=== PATIENT | male | born 1995 | race Caucasian/White ===

== ENCOUNTER 2019-11-21 01:46 | Emergency (ER) | payer OTHER ==
--- NOTE | 2019-11-21 02:36 | PDOC ---
History of Present Illness - History of Present Illness Initial Comments: 11/21/19 03:14 24 year old man with no pmhx who presents with abdominal pain at 11:30 am followed by nbnb vomiting x7 and some loose stools. He also reports some chills. He denies any other sick contacts, eating any unusal foods. He dnies any history of abdominal surgeries in the past. He complains of some nausea and some abdominal pain. He has no other complaints. ROS GENERAL/CONSTITUTIONAL: No fever, + chills. No weakness. HEAD, EYES, EARS, NOSE AND THROAT: No sore throat. CARDIOVASCULAR: No chest pain or shortness of breath RESPIRATORY: No cough, wheezing, or hemoptysis. GASTROINTESTINAL: + nausea, vomiting, diarrhea, No constipation. GENITOURINARY: No dysuria, frequency, or change in urination. MUSCULOSKELETAL: No joint or muscle swelling or pain. No neck or back pain. SKIN: No rash NEUROLOGIC: No headache, vertigo, loss of consciousness, or change in strength/ sensation. PE GENERAL: Awake, alert, and fully oriented, in no acute distress HEAD: No signs of trauma, normocephalic, atraumatic EYES: EOMI, sclera anicteric, conjunctiva clear ENT: oropharynx clear without exudates. Moist mucosa NECK: Normal ROM, supple LUNGS: No distress, speaks full sentences, clear to auscultation bilaterally HEART: Regular rate and rhythm, normal S1 and S2, no murmurs, rubs or gallops, peripheral pulses normal and equal bilaterally. ABDOMEN: Soft, + mild tenderness to epigastrum. No guarding, no rebound. No masses EXTREMITIES : Normal inspection, Normal range of motion, no edema. No clubbing or cyanosis. NEUROLOGICAL: Cranial nerves II through XII grossly intact. Normal speech, normal gait, no focal sensorimotor deficits SKIN: Warm, Dry, normal turgor, no rashes or lesions noted MDM DDX including but not limited to: viral gastroenteritis r/o appendicitis vs pancreatitis vs gallstone ED Course: labs, zofran, pepcid, maalox Labs wnl patient feels improved on reassessment will send with zofran and recommend pcp f/u d/c with strict return precautions Julianne Rivera, PGY2 Emergency Medicine <Julianne Rivera - Last Filed: 11/21/19 20:57> <Chely Hernandez - Last Filed: 11/21/19 21:09> - General Stated Complaint: ABD PAIN Time Seen by Provider: 11/21/19 02:35 Past History <Julianne Rivera - Last Filed: 11/21/19 20:57> <Chely Hernandez - Last Filed: 11/21/19 21:09> - Past Medical History Allergies/Adverse Reactions: Allergies Allergy/AdvReac Type Severity Reaction Status Date / Time No Known Allergies Allergy Verified 11/21/19 03:38 Home Medications: Ambulatory Orders Ondansetron [Zofran -] 4 mg PO BID #14 tablet 11/21/19 *Physical Exam - Vital Signs Last Vital Signs Temp Pulse Resp BP Pulse Ox 98.1 F 80 20 117/74 99 11/21/19 02:35 11/21/19 02:35 11/21/19 02:35 11/21/19 02:35 11/21/19 02:35 <Chely Hernandez - Last Filed: 11/21/19 21:09> Heart Score/ECG Review - ECG Intrepretation Rhythm: Regular Rhythm - Chamberino Chamberino: Normal - P and MI Delta Wave(s) Present: No WPW: No - QRS Poor R Wave Progression: No Q Wave Present: No - ST and T Early Repolarization: No Non Specific ST-T Wave changes: No - ECG Impressions Normal ECG: Yes Non-specific ST Elevation: No Ischemic Changes: No Torsades deann Pointes: No WPW: No <Chely Hernandez - Last Filed: 11/21/19 21:09> ED Treatment Course - LABORATORY CBC & Chemistry Diagram: 11/21/19 03:12 11/21/19 03:12 <Julianne Rivera - Last Filed: 11/21/19 20:57> - LABORATORY CBC & Chemistry Diagram: 11/21/19 03:12 11/21/19 03:12 - ADDITIONAL ORDERS Additional order review: 11/21/19 03:12 RBC 5.83 H MCV 81.9 MCHC 33.2 RDW 13.0 MPV 8.4 Neutrophils % 82.5 Lymphocytes % 7.8 L Monocytes % 7.8 Eosinophils % 1.5 Basophils % 0.4 - Medications Given in the ED: ED Medications Discontinued Medications Generic Name Dose Route Start Last Admin Trade Name Miley PRN Reason Stop Dose Admin Al Hydroxide/Mg Hydroxide 30 ml 11/21/19 03:13 11/21/19 03:39 Mylanta Oral Suspension - PO 11/21/19 03:14 30 ml ONCE ONE Administration Sodium Chloride 1,000 mls @ 42 mls/hr 11/21/19 03:15 11/21/19 03:39 Normal Saline - IV 42 mls/hr ASDIR MARIZA Administration Famotidine/Sodium Chloride 20 mg in 50 mls @ 100 mls/hr 11/21/19 03:44 03:45 Pepcid 20 Mg Premixed Ivpb - IVPB 11/21/19 04:13 100 mls/hr ONCE ONE Administration Ondansetron HCl 4 mg 11/21/19 03:12 11/21/19 03:39 Zofran Injection IVPUSH 11/21/19 03:13 4 mg ONCE ONE Administration <Chely Hernandez - Last Filed: 11/21/19 21:09> Discharge - Discharge Information Problems reviewed: Yes - Admission No <Julianne Rivera - Last Filed: 11/21/19 20:57> <Chely Hernandez - Last Filed: 11/21/19 21:09> - Discharge Information Clinical Impression/Diagnosis: Gastroenteritis Condition: Stable Disposition: HOME - Additional Discharge Information Prescriptions: Ondansetron [Zofran -] 4 mg PO BID #14 tablet - Patient Discharge Instructions Patient Printed Discharge Instructions: DI for Vomiting -- Adult Additional Instructions: You were seen in the ED for complaints of vomiting In the ED you were evaluated with labwork that was negative Your results were unremarkable and you improved with medications There does not appear to be an acute need for immediate hospitalization. You are advised to follow up with your Primary Care Physician within 1 week. You were given a prescription for Zofran which should be taken as prescribed Return to the ED immediately if you experience worsening vomiting, abdominal pain, diarrhea, blood in the vomit or stool
--- NOTE | 2019-11-21 02:45 | PDOC ---
Attending Attestation - Resident Resident Name: Julianne Rivera - ED Attending Attestation I have performed the following: I have examined & evaluated the patient, The case was reviewed & discussed with the resident, I agree w/resident's findings & plan - HPI HPI: 11/21/19 06:51 Pt comes with viral illness. He is dry and dehydrated and feeling unwell. - Physicial Exam PE: 11/21/19 06:51 Agree with resident exam 11/21/19 06:52 HEENT normal; +exudate at the pharynx; however no erythema Poor dentition: pt is a smoker Heart S1S2 RRR Lungs: CTA B Abd soft NT ND no flank pain Ext No C/C/E - Medical Decision Making 11/21/19 06:51 Group A strep negative Labs normal Pt feels better after hydration
[2019-11-21] MEDS ORDERED: ONDANSETRON 4 MG/2 ML VIAL IVPUSH ONE (03:12)
[2019-11-21] MEDS ORDERED: FAMOTIDINE 20 MG TABLET PO ONE (03:13)
[2019-11-21] MEDS ORDERED: MAG HYDROX/AL HYDROX/SIMETH 30 ML UNIT-DOSE CUP PO ONE (03:13)
[2019-11-21] MEDS ORDERED: SODIUM CHLORIDE 1,000 ML IV SCH (03:15)
[2019-11-21 03:26] VITALS: BP 117/74; PULSE 80; TEMP 98.1; BMI 25.0
[2019-11-21] MEDS ORDERED: ONDANSETRON 4 MG/2 ML VIAL ONE (03:28)
[2019-11-21] MEDS ORDERED: MAG HYDROX/AL HYDROX/SIMETH 30 ML UNIT-DOSE CUP ONE (03:28)
[2019-11-21] MEDS ORDERED: FAMOTIDINE 20 MG/50 ML IVPB 20 MG/50 ML MG IVPB ONE ×2 (03:29→03:44)
[2019-11-21 03:34] LABS: BASO % 0.4 % (0-2.0); EOS % 1.5 % (0-4.5); HEMATOCRIT 47.7 % (35.4-49); HEMOGLOBIN 15.8 GM/dL (11.7-16.9); LYMPH % 7.8 % (8-40); MCH 27.2 pg (25.7-33.7); MCHC 33.2 g/dl (32.0-35.9); MEAN CELL VOLUME 81.9 fl (80-96); MEAN PLT VOLUME 8.4 fl (7.5-11.1); MONO % 7.8 % (3.8-10.2); NEUT % 82.5 % (42.8-82.8); PLATELET COUNT 238 K/MM3 (134-434); RBC 5.83 M/mm3 (4.00-5.60); WHITE BLOOD COUNT 9.3 K/mm3 (4.0-10.0)
[2019-11-21 04:04] LABS: ALBUMIN 4.2 g/dl (3.4-5.0); BILIRUBIN,TOTAL 0.5 mg/dL (0.2-1); BLOOD UREA NITROGEN 15.2 mg/dL (7-18); CALCIUM 8.9 mg/dL (8.5-10.1); CREATININE 0.8 mg/dL (0.55-1.3); POTASSIUM 4.8 mmol/L (3.5-5.1); TOT PROT 6.9 g/dl (6.4-8.2)
--- NOTE | 2019-11-21 13:31 | EKG ---
Test Reason : Blood Pressure : / mmHG Vent. Rate : 071 BPM Atrial Rate : 071 BPM P-R Int : 128 ms QRS Dur : 082 ms QT Int : 390 ms P-R-T Axes : 000 050 048 degrees QTc Int : 423 ms POOR DATA QUALITY, INTERPRETATION MAY BE ADVERSELY AFFECTED NORMAL SINUS RHYTHM NORMAL ECG NO PREVIOUS ECGS AVAILABLE Confirmed by MD DRE, MATILDE ([id number]) on 11/21/2019 1:31:05 PM Referred By: Confirmed By:MATILDE ERICKSON MD
== END 2019-11-21 05:27 | disposition home or self-care (01) ==
LOC: JER 01:46
PROC: 3E033GC Introduction of Other Therapeutic Substance into Peripheral Vein, Percutaneous Approach (ICD-10-PCS; principal; 2019-11-21)
PROC: 3E033GC Introduction of Other Therapeutic Substance into Peripheral Vein, Percutaneous Approach (ICD-10-PCS; 2019-11-21)
DX: K52.9 Noninfective gastroenteritis and colitis, unspecified (principal)
CPT/HCPCS: 36415; 80053; 83690; 85025; 87070; 87880; 93005; 93010; 96365; 96375; 99283-25; J7030